=== PATIENT | female | born 1975 | race Caucasian/White ===

== ENCOUNTER 2021-03-05 01:53 | Day surgery (SDC) | payer OTHER, SELFPAY ==
[2021-03-05] VITALS (8 sets, daily range): BP systolic 109–161; BP diastolic 51–81; PULSE 81–94; RESP 16–20; TEMP 36.7–37.1; O2SAT 98–99
--- NOTE | ~2021-03-05 | XR_ITS ---
XR abdomen/kub 1V 03/05/2021 12:50 Indication: Preop ESWL Procedure: KUB Comparison: No prior studies for comparison. Findings: Bowel pattern is nonobstructive. There is an IVC filter, superior tip at the L2 level. Ther e are pelvic phleboliths. There are multiple punctate radiodensities throughout the abdomen, likely b owel content. There is a left-sided calcification at the L4 level, possibly ureteral stone or low lyi ng UPJ stone. Lung bases are unremarkable. Impression: 1: Possible stone in the proximal aspect of the left ureter or UPJ at the L4 level. Consider correlat ion with CT. Reviewed, dictated and finalized at location A. D REPRESENTATIVE Impression: 1: Possible stone in the proximal aspect of the left ureter or UPJ at the L4 le rashaad. Consider correlation with CT.
--- NOTE | 2021-03-05 06:59 | WPDHPUPDATE1 ---
History and Physical Update Update Date/Time: 03/05/21 06:59 History and Physical has been reviewed, including an updated exam of the patient. There are NO changes in the patient's condition. Risks, benefits, and alternatives have been discussed and questions answered. Patient agrees to proceed with procedure.
--- NOTE | 2021-03-05 08:33 | PC.NURSE ---
Report to the Outpatient Waiting Room, entrance under the green pavilion located off [facility], at time [id number] on date 03/05/21. OR Time: 1400. - You and your visitor will be asked a series of questions to screen for COVID 19 for your protection. - A mask is required within the hospital. - Only one visitor is allowed at this time. Patient visitors will be guided where to wait when not with patient. Preoperative COVID Testing Requirements: RAPID COVID PRIOR TO SURGERY No COVID Test needed if: (proof is required; if not received patient will have Rapid Test prior to entry) - Patient has received COVID Vaccine at least 14 days prior to procedure date or - Patient has positive COVID test result within last 90 days of surgery date. COVID Test needed if above criteria is not met If not COVID vaccinated a COVID test must be conducted within 72 hours of surgery and patient is asked to isolate self from time of testing until procedure. You will go to the [facility] for your COVID testing. The [facility] site is located at the corner of [address] [facility]. You will only be called if COVID results are positive and your surgeon may reschedule your elective surgery date. Patients may have clear liquids (water, carbonated beverages, clear teas, apple juice) until 3 hours prior to surgery with a maximum of 20 ounces. - No food from midnight until time of surgery - Infants may have breast milk until 4 hours before surgery, infant formula 6 hours prior to surgery. - Children will be allowed to drink immediately following surgery. If applicable, please bring a bottle or sippy cup to assist with drinking. Juice, water, soda, and popsicles are readily available. For infants on formula, please bring formula the day of surgery. Pacifiers are allowed. Take the following medications with a SIP of water the morning of surgery: WELLBUTRIN, CONTROL PILL Medications to discontinue per physician: N/A Date to take last dose: N/A Please no make-up, nail luxembourger, hairspray, perfume, deodorant, or body powder the day of surgery. No jewelry (including any body piercings) or valuables the day of surgery, leave them at home. Please take a shower or bath the night before, or the morning of, surgery with an antibacterial soap. Wear comfortable, loose fitting clothing. Children are encouraged to wear pajamas. - Jewelry must be removed prior to entering the operating room. Rings and piercings that are not removed may be cut off. - The hospital will not accept responsibility for valuables. - Please leave all valuables, including medications, at home the day of surgery. If you are going home after surgery, a licensed yard driver must drive you home. - NO public transportation without another adult. - We recommend that an adult stay with you for 24 hours following discharge. - We also recommend that you do not drive, make important decision, drink alcoholic beverages, or take any drugs that were not prescribed by your health care provider for at least 24 hours after your discharge time. For Pediatric surgeries, we recommend two adults accompany the child home (only one inside the building at this time). Follow any additional instructions given to you from your surgeon. Telephone instructions given to JORGE DAVILA and asked if any additional questions and then verbalized understanding. Patient advised to call surgeon office or pre surgery nurse liaison [phone] if any additional questions.
--- NOTE | 2021-03-05 13:04 | WPDANESEPPF ---
Anes - Initial Pre Proc Eval Procedure: Operation Date: 03/05/21 14:00 Proposed Procedures p Left Ureteral Extracorporeal Shock Wave Lithotripsy - Jason Bermudez MD Date/Time: 03/05/21 13:04 Surgeon: Jason Bermudez MD Pre Op Diagnosis: left ureteral stone Patient Data Age: 45 Gender: F Height: 1.68 m Weight: Allergies Allergy/AdvReac Type Severity Reaction Status Date / Time No Known Allergies Allergy Verified 03/05/21 12:58 Home Medications Medication Instructions Recorded Confirmed Type bupropion HCl [Wellbutrin] 75 mg PO DAILY 03/05/21 03/05/21 History norethindrone (contraceptive) 1 mg PO DAILY 03/05/21 03/05/21 History tamsulosin 0.4 mg PO HS 03/05/21 03/05/21 History Patient hx anesthesia problems: none Family hx anesthesia problems: none Results Review: All pre-operative results and documents have been reviewed as part of the pre-operative evaluation. [facility] Past Medical History Medical History (Updated 03/05/21 @ 11:02 by Jamal Khan DO) DVT (deep venous thrombosis) Surgical History Surgical History (Updated 03/05/21 @ 11:02 by Jamal Khan DO) S/P insertion of spinal cord stimulator S/P IVC filter Social History Social History Smoking status: Never smoker Alcohol intake: never Substance use: never Substance use type: does not use Spiritual care concerns: No Anes - Eval Final PreProcedure Day of Procedure 03/05/21 13:04 Patient weight: super morbidly obese Heart: regular rate and rhythm Lungs: clear to auscultation and normal air movement Airway: Mallampati scale class II Neurological: alert and oriented Last oral intake: >/= 8 hours ASA classification: III Emergent: no Anesthetic plan: proceed Anesthesia type and monitoring: general LMA and standard monitoring Results Review: All pre-operative results and documents have been reviewed as part of the pre-operative evaluation. Informed Consent: The patient's anesthetic plan and its attendant risks and benefits were discussed with the patient/family/POA. Questions were solicited and answers provided to the satisfaction of the patient/family/POA.
[2021-03-05] MEDS: LACTATED RINGERS 1,000 ML 30 ML IV CONT ×2 (13:26→16:13)
[2021-03-05 13:41] LABS: Prothrombin Time 13.2 Seconds (11.1-14.7)
[2021-03-05 13:42] LABS: Partial Thromboplastin Time 27.7 SECONDS (22.3-36.8)
[2021-03-05] MEDS: ceFAZolin 3 GM/D5W 100 ML 100 ML IVPB (13:53)
--- NOTE | 2021-03-05 14:17 | W.PM.PROC2 ---
Procedure Note - Detailed Date of Procedure 03/05/21 Pre-op Diagnosis Left ureteral stone Post-op Diagnosis same Procedure Performed Left ESWL Surgeon Jason Bermudez MD Anesthesia general Description of Procedure The patient was brought to the operative suite where she was placed in the supine position on the Dornier lithotripsy table. The focal point of the lithotripter was placed at a 6mm left mid-ureteral calculus. A total of 3000 shocks were delivered at a power setting of 46. There appeared to be good fragmentation of the stone. The patient tolerated the procedure well and was taken to the recovery room in good condition. Drains No Packing No Pathology none sent Complications No immediate complications Condition stable Disposition PACU
[2021-03-05] MEDS: ONDANSETRON INJ 4 MG/2 ML VIAL IV PUSH (15:00)
[2021-03-05] MEDS: diphenhydrAMINE HCl INJ 50 MG/ML VIAL 25 MG IV PUSH (16:12)
== END 2021-03-05 17:15 | disposition home or self-care (01) ==
PROVIDERS: Visit Provider Urology
PROC: (CPT 50590; principal; 2021-03-05 14:00)
DX: N20.1 Calculus of ureter (principal); N32.81 Overactive bladder; N39.3 Stress incontinence (female) (male); E66.01 Morbid (severe) obesity due to excess calories; N39.41 Urge incontinence; Z86.718 Personal history of other venous thrombosis and embolism; Z68.43 Body mass index [BMI] 50.0-59.9, adult; Z96.82 Presence of neurostimulator; Z95.828 Presence of other vascular implants and grafts
CPT/HCPCS: 50590; 36415; 74018; 85610; 85730; 87426; C9803; J0690; J1100; J1200; J2405; J2704; J7120

== ENCOUNTER 2021-03-05 11:46 | Outpatient (CLI) | payer OTHER, SELFPAY ==
[2021-03-05 12:23] LABS: EDCOVIDSCREEN Negative (Negative)
== END 2021-03-05 11:47 | disposition home or self-care (01) ==
LOC: ANHSURGERY 11:51
PROVIDERS: Visit Provider Urology
DX: Z01.812 Encounter for preprocedural laboratory examination (principal); Z20.822 Contact with and (suspected) exposure to COVID-19
CPT/HCPCS: 87426; C9803